=== PATIENT | male | born 2000 | race Caucasian/White ===

== ENCOUNTER 2023-07-20 14:35 | Outpatient (CLI) | payer BC, SELFPAY ==
--- NOTE | ~2023-07-20 | MR_ITS ---
EXAMINATION: MR brain/brain stem wo con DATE: 07/20/2023 15:12 INDICATION: Migraine without aura, intractable, without status migrainosus. TECHNIQUE: Magnetic resonance imaging (MRI) of the brain and brainstem was performed without intraven ous contrast. COMPARISON: None. FINDINGS: There are 2 foci of increased T2-weighted signal intensity in the cerebral white matter, wh ich is normal for the patient's age. There is no intracranial hemorrhage, acute infarction, or abnorm al intracranial mass lesion. The ventricles are normal in size. There are mucous retention cysts in t he maxillary sinuses. The orbits are normal. The mastoid air cells are normal. IMPRESSION: 1. Normal brain. Reviewed, dictated and finalized at location E. IMPRESSION: 1. Normal brain.
== END 2023-07-20 14:36 ==
DX: G44.86 Cervicogenic headache (principal); G43.019 Migraine without aura, intractable, without status migrainosus
CPT/HCPCS: 70551